=== PATIENT | male | born 1945 | race Caucasian/White ===

== ENCOUNTER 2016-12-03 10:19 | Outpatient (CLI) | payer MEDICARE ==
[2016-12-03 11:05] LABS: Anion Gap 15 mmol/L (10-20); BUN (Urea Nitrogen) 22 mg/dL (8.4-25.7); Calc. Creatinine Clearance 0 mL/min (70-130); Calcium 9.3 mg/dL (7.8-10.44); Carbon Dioxide 21 mmol/L (23-31); Chloride 106 mmol/L (98-107); Estimated GFR-MDRD 65; Glucose 223 mg/dL (83-110); Potassium 4.5 mmol/L (3.5-5.1); Sodium 137 mmol/L (136-145)
== END 2016-12-03 10:20 | disposition home or self-care (01) ==
LOC: MADLAB 10:19
PROVIDERS: ATTEND Internal Medicine Cardiovascular Disease
DX: I10 Essential (primary) hypertension (principal)
CPT/HCPCS: 36415; 80048

== ENCOUNTER 2019-01-08 13:43 | Outpatient (CLI) | payer MEDICARE ==
--- NOTE | 2019-01-08 14:17 | CT ---
CT Abdomen Pelvis WO Con 01/08/2019 1:49 PM HISTORY: Right flank pain for one week with urinary frequency COMPARISON: None. Technique: Multiple contiguous axial CT images are obtained through the abdomen and pelvis without IV contrast. Coronal reformats are provided. FINDINGS: This examination is limited for the evaluation of solid organs and vascular structures due to the lac k of intravenous contrast. Lower Chest: Bibasilar atelectasis is present. Abdomen: Liver: Grossly normal nonenhanced CT appearance. Gallbladder: Grossly normal nonenhanced CT appearance. Pancreas: Grossly normal nonenhanced CT appearance. Spleen: Single calcified granuloma. Adrenals: Grossly normal nonenhanced CT appearance Kidneys: No renal calculi are visualized, and there is no evidence of hydronephrosis. Ureters: No ureteral calculus is seen.. The distal ureters are not visualized due to streak artifact in the pelvis from right total hip prosthesis. Pelvis: Urinary bladder: Obscured due to streak artifact from right total hip prosthesis. Lymph Nodes: No enlarged lymph nodes. Bowel: Normal in caliber. A few scattered colonic diverticula are seen. Appendix: Not visualized, but no secondary signs to suggest appendicitis are identified. Peritoneum: No free fluid, free air, or fluid collection. Retroperitoneum: within normal limits. Vessels: Vascular calcifications are seen in the abdominal aorta and involving the iliac arteries.. Abdominal Wall: Tiny fat-containing umbilical hernia is present. Bones: There is right convex scoliosis thoracolumbar spine with multilevel degenerative changes in th e spine including vacuum phenomenon at all levels. Right total hip prosthesis is noted. Subchondral cystic changes are seen in the supra-acetabular location. IMPRESSION: 1. No renal or ureteral calculi are seen bilaterally. The distal ureters bilaterally or obscured due to streak artifact from right total hip prosthesis. No hydronephrosis is present. 2. No acute findings are seen on this nonenhanced CT scan of the abdomen and pelvis.
== END 2019-01-08 13:44 | disposition home or self-care (01) ==
LOC: MADCT 13:43
PROVIDERS: ATTEND Family Medicine
DX: R10.9 Unspecified abdominal pain (principal); Z96.641 Presence of right artificial hip joint
CPT/HCPCS: 74176

== ENCOUNTER 2019-01-14 13:34 | Emergency (ER) | payer MEDICARE | END 2019-01-14 14:30 | disposition home or self-care (01) | LOC: MADERS 13:34 | DX: S39.011A Strain of muscle, fascia and tendon of abdomen, initial encounter (principal); E11.9 Type 2 diabetes mellitus without complications; I10 Essential (primary) hypertension; Z79.4 Long term (current) use of insulin; Z79.899 Other long term (current) drug therapy; Z79.82 Long term (current) use of aspirin; X58.XXXA Exposure to other specified factors, initial encounter | CPT/HCPCS: 99283 ==